=== PATIENT | female | born 1960 | race Caucasian/White ===

== ENCOUNTER → 2019-07-08 09:46 | Outpatient (CLI) | payer OTHER, SELFPAY ==
--- NOTE | ~2019-07-08 | MMUS_ITS ---
EXAMINATION: MM diagnostic sarah LT w bryan, US breast LT limited HISTORY: Six-month follow-up for probably benign left breast masses TECHNIQUE: Craniocaudal, mediolateral, and mediolateral oblique 3-D tomosynthesis images of the left breast were performed and synthetic 2-D images were generated. CAD analysis was submitted and interpr eted. High resolution limited left breast ultrasound was performed. COMPARISON: 11/11/2018, 06/20/2017, 04/07/2016 BREAST PARENCHYMAL COMPOSITION: The breasts are heterogeneously dense, which may obscure small masses . FINDINGS: MAMMOGRAPHIC FINDINGS: There is subtle architectural distortion and fine pleomorphic calcification in the posterior third of the upper outer breast at the 2:00 location 9 cm from the nipple. There is also an irregular, obscur ed, high density mass in the posterior third of inner breast at the 9:00 location 6.5 cm from the nip ple. ULTRASOUND: There is a 5 mm x 4 mm oval, parallel, hypoechoic mass with indistinct margins at the 9:00 location 4 cm from the nipple which demonstrates posterior acoustic shadowing but no definite internal vascular ity. There is a 6 mm x 5 mm oval, not parallel, hypoechoic mass with indistinct margins at the 2:00 l ocation 6 cm from the nipple with posterior acoustic shadowing but no definite internal vascularity. IMPRESSION: 1. Suspicious left breast masses. 2. Ultrasound-guided biopsy is recommended. Given the recent diagnosis of Paget's disease of the nipp le, MRI could be considered prior to biopsy to evaluate for additional occult masses. BI-RADS category 4, suspicious findings. Reviewed, dictated and finalized at location A. IMPRESSION: 1. Suspicious left breast masses. 2. Ultrasound-guided biopsy is recommended. Given the recent diagnosis of Paget 's disease of the nipple, MRI could be considered prior to biopsy to evaluate f or additional occult masses. BI-RADS category 4, suspicious findings.
== END ==
PROVIDERS: PCP Family Medicine; Visit Provider Family Medicine
DX: C50.012 Malignant neoplasm of nipple and areola, left female breast (principal); R92.8 Other abnormal and inconclusive findings on diagnostic imaging of breast
CPT/HCPCS: 76642; 77061; 77065; G0279

== ENCOUNTER 2019-07-18 09:28 | Outpatient (CLI) | payer OTHER, SELFPAY ==
--- NOTE | ~2019-07-18 | MR_ITS ---
EXAMINATION: MR breast BI wo/w con INDICATION: Paget's disease of the left nipple with suspicious left breast masses seen on diagnostic mammogram and ultrasound. TECHNIQUE: Axial VIBRANT pre and dynamic post contrast, Sagittal VIBRANT post contrast, Axial T2 STIR ASSET COMPARISON: 07/08/2019, 11/11/2018, 06/10/2017 CONTRAST: Multihance, 17 cc BREAST COMPOSITION: Heterogeneous fibroglandular tissue FINDINGS: RIGHT BREAST: There is mild background parenchymal enhancement. No abnormal enhancement is present af ter contrast administration. No pathologically enlarged axillary or internal mammary lymph nodes are identified. LEFT BREAST: There is mild background parenchymal enhancement. There is a 13 mm x 9 mm x 7 mm oval m ass with irregular margins, homogeneous internal enhancement with rapid enhancement in the initial ph ase and washout in the delayed phase at the 11:00 location in the middle third of the upper inner blue ast 5.5 cm from the nipple. A 13 mm x 10 mm mass with similar MR characteristics is seen in the anter ior/middle third of the breast at the 11:00 location 3.8 cm from the nipple. A 9 mm x 7 mm mass with similar sonographic features is present in the middle third of the breast at the 1:00 location 4 cm f rom the nipple. A 12 mm x 10 mm mass with similar MR features is present in the middle third of the b reast at the 10:00 location 5.5 cm from the nipple. An 11 mm x 9 mm mass with similar MR characterist ics is present in the posterior third of the slightly outer and central breast at the 2:00 location 8 cm from the nipple. There is nonmass enhancement in the anterior and middle third of the central, sl ightly upper breast. No pathologically enlarged axillary or internal mammary lymph nodes are identifi ed. IMPRESSION: 1: At least five suspicious left breast masses consistent with multicentric left breast cancer. Rece nt ultrasound demonstrated masses at 2:00, 6 cm from the nipple and 9:00, 4 cm from the nipple. Ultra sound-guided biopsy of these masses is recommended. 2. Nonmass enhancement of the left breast suspicious for ductal carcinoma in situ. BI-RADS category 5, highly suggestive of malignancy. Reviewed, dictated and finalized at location A. IMPRESSION: 1: At least five suspicious left breast masses consistent with multicentric le ft breast cancer. Recent ultrasound demonstrated masses at 2:00, 6 cm from the nipple and 9:00, 4 cm from the nipple. Ultrasound-guided biopsy of these masses is recommended. 2. Nonmass enhancement of the left breast suspicious for ductal carcinoma in si tu. BI-RADS category 5, highly suggestive of malignancy.
[2019-07-18 10:22] LABS: Estimated Glomerular Filt Rate > 60
== END 2019-07-18 09:29 | disposition home or self-care (01) ==
PROVIDERS: PCP Family Medicine; Visit Provider Surgery
DX: C44.99 Other specified malignant neoplasm of skin, unspecified (principal); R92.8 Other abnormal and inconclusive findings on diagnostic imaging of breast
CPT/HCPCS: 36415; 77049; A9577; C8908

== ENCOUNTER 2019-10-08 10:03 | Outpatient (CLI) | payer OTHER, SELFPAY ==
--- NOTE | ~2019-10-08 | DEXA_ITS ---
Bone Density Report Name: Charley Alvarez Age: 59 Sex: Female Ethnicity: White Date of : 1960 Indication: postmenopausal; prior fracture; cancer; Referring Provider: Gianfranco Yadav Study: Bone densitometry was performed. Exam Date: October 08, 2019 Accession number: [id number] Bone Density: Region BMD T-score Z-score Classification AP Spine (L1-L4) 0.838 -1.9 -0.6 Osteopenia Femoral Neck (Left) 0.693 -1.4 -0.2 Osteopenia Total Hip (Left) 0.842 -0.8 0.0 Normal Total Hip Bilateral Avg 0.808 -1.1 -0.3 Osteopenia Femoral Neck (Right) 0.621 -2.1 -0.9 Osteopenia Total Hip (Right) 0.772 -1.4 -0.6 Osteopenia World Health Organization criteria for BMD impression classify patients as: Normal (T-score at or above -1.0), Osteopenia (T-score between -1.0 and -2.5), or Osteoporosis (T-score at or below -2.5). 10-year Fracture Risk(1): Major Osteoporotic Fracture 15% Hip Fracture 2.0% Reported Risk Factors: [place] (), Neck BMD=0.621, BMI=30.5, previous fracture (1) FRAX(R) Version 3.08. Fracture probability calculated for an untreated patient. Fracture probability may be lower if the patient has received treatment. Clinical Information Provided by Patient: Has had a low trauma fracture Has the following medical conditions: Cancer Patient maximum height was 66 Menopause Age: 51 Drinks caffeinated beverages Onset of menses at age 13 Number of children 2 Impression: The patient has low bone mass, based on the Right Femoral Neck T-score. The patient has an estimated ten-year risk of hip fracture of 2% and an estimated ten-year risk of major fracture of 15%, based on the WHO FRAX algorithm. The patient has risk factors, including: previous fracture. Discussion: BONE DENSITY IS LOW AT ONE OR MORE SKELETAL SITES. This patient's lowest T-score is low at one or more skeletal sites. It meets the World Health Organization's (WHO) criteria for ?low bone mass? (T-score between -1.0 and -2.5). The patient's 10-year risk of fracture as calculated by FRAX is less than the threshold where pharmacological therapy is recommended by the National Osteoporosis Foundation (NOF). However, all treatment decisions require clinical judgment and consideration of individual patient factors, including patient preferences, comorbidities, previous drug use, risk factors not captured in the FRAX model (e.g., frailty, falls, vitamin D deficiency, increased bone turnover, interval significant decline in bone density) and possible under or overestimation of fracture risk by FRAX. The patient should follow a healthful lifestyle (good nutrition with adequate calcium and vitamin D, and appropriate weight-bearing exercise). Follow-Up: Consider repeating this study in 2 to 3 years to reassess this patient's status, or sooner if there is some new
== END 2019-10-08 10:04 | disposition home or self-care (01) ==
PROVIDERS: PCP Family Medicine; Visit Provider Internal Medicine Medical Oncology
DX: C50.112 Malignant neoplasm of central portion of left female breast (principal); M85.88 Other specified disorders of bone density and structure, other site; M85.852 Other specified disorders of bone density and structure, left thigh; M85.851 Other specified disorders of bone density and structure, right thigh
CPT/HCPCS: 77080

== ENCOUNTER 2021-11-15 15:42 | Outpatient (CLI) | payer OTHER, SELFPAY ==
--- NOTE | ~2021-11-15 | DEXA_ITS ---
Bone Density Report Name: ASHKAN NICHOLS Age: 61 Sex: Female Ethnicity: White Date of : 1960 Indication: postmenopausal; screening for osteoporosis; cancer; Referring Provider: YOSELYN, FERNANDA Garces Study: Bone densitometry was performed. Exam Date: November 15, 2021 Accession number: [id number] Bone Density: Region BMD T-score Z-score Classification AP Spine(L1-L4) 0.844 -1.8 -0.4 Osteopenia Femoral Neck (Left) 0.695 -1.4 -0.1 Osteopenia Total Hip (Left) 0.876 -0.5 0.4 Normal Femoral Neck (Right) 0.647 -1.8 -0.5 Osteopenia Total Hip (Right) 0.809 -1.1 -0.1 Osteopenia Total Hip Mean 0.842 -0.8 0.2 Normal World Health Organization criteria for BMD impression classify patients as: Normal (T-score at or above -1.0), Osteopenia (T-score between -1.0 and -2.5), or Osteoporosis (T-score at or below -2.5). 10-year Fracture Risk(1): Major Osteoporotic Fracture 8.7% Hip Fracture 0.9% Reported Risk Factors: [place] (), Neck BMD=0.647, BMI=30.0 (1) FRAX(R) Version 3.08. Fracture probability calculated for an untreated patient. Fracture probability may be lower if the patient has received treatment. Clinical Information Provided by Patient: Has used the following medications: Vitamin D Has the following medical conditions: Cancer Patient maximum height was 66 Menopause Age: 51 Drinks caffeinated beverages Onset of menses at age 13 Number of children 2 Impression: The patient has low bone mass, based on the Total Spine T-score. The patient has an estimated ten-year risk of hip fracture of 0.9% and an estimated ten-year risk of major fracture of 8.7%, based on the WHO FRAX algorithm. Discussion: BONE DENSITY IS LOW AT ONE OR MORE SKELETAL SITES. This patient's lowest T-score is low at one or more skeletal sites. It meets the World Health Organization's (WHO) criteria for ?low bone mass? (T-score between -1.0 and -2.5). The patient's 10-year risk of fracture as calculated by FRAX is less than the threshold where pharmacological therapy is recommended by the National Osteoporosis Foundation (NOF). However, all treatment decisions require clinical judgment and consideration of individual patient factors, including patient preferences, comorbidities, previous drug use, risk factors not captured in the FRAX model (e.g., frailty, falls, vitamin D deficiency, increased bone turnover, interval significant decline in bone density) and possible under or overestimation of fracture risk by FRAX. The patient should follow a healthful lifestyle (good nutrition with adequate calcium and vitamin D, and appropriate weight-bearing exercise). Follow-Up: Consider repeating this study in 2 to 3 years to reassess this patient's status, or sooner if there is some new clinical indication. Reporte
== END 2021-11-15 15:43 | disposition home or self-care (01) ==
PROVIDERS: PCP Family Medicine; Visit Provider Internal Medicine Medical Oncology
DX: Z13.820 Encounter for screening for osteoporosis (principal); Z79.811 Long term (current) use of aromatase inhibitors; C18.1 Malignant neoplasm of appendix; M85.88 Other specified disorders of bone density and structure, other site; M85.852 Other specified disorders of bone density and structure, left thigh; M85.851 Other specified disorders of bone density and structure, right thigh
CPT/HCPCS: 77080

== ENCOUNTER → 2021-11-28 13:52 | Outpatient (CLI) | payer OTHER, SELFPAY ==
--- NOTE | ~2021-11-28 | XR_ITS ---
EXAM: XR knee RT 2V DATE: 11/28/2021 14:06 HISTORY: Right knee pain, unspecified chronicity . COMPARISON: 02/06/2018. FINDINGS: Normal mineralization. No fracture or dislocation. No lytic or blastic lesion. Moderate me dial joint space narrowing. Loss of valgus alignment. Tricompartmental osteophytosis, moderate in the medial and patellofemoral compartments. No erosion or periosteal change. Varicose veins. Small volum e knee joint fluid. 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 Reviewed, dictated and finalized at location K.
== END ==
PROVIDERS: PCP Family Medicine; Visit Provider Internal Medicine Medical Oncology
DX: M17.11 Unilateral primary osteoarthritis, right knee (principal)
CPT/HCPCS: 73560

== ENCOUNTER 2023-11-04 07:05 | Emergency (ER) | payer OTHER, SELFPAY ==
[2023-11-04] VITALS (12 sets, daily range): BP systolic 125–176; BP diastolic 72–89; PULSE 83–95; RESP 10–20; TEMP 37.4–38.3; O2SAT 97–100
--- NOTE | ~2023-11-04 | XR_ITS ---
XR chest 1V portable DATE: 11/04/2023 07:43 INDICATION: Sudden onset of shortness of breath overnight. Back pain. TECHNIQUE: Portable upright AP chest on 11/04/2023 at 0737 hours COMPARISON: 01/13/2010 2 view chest FINDINGS: Heart size is within normal range. There is mild aortic tortuosity. No hilar or mediastinal enlargement. No pulmonary infiltrate or consolidation, pleural effusion or pulmonary vascular congestion or pneumo thorax. Osteopenia. IMPRESSION: No active cardiopulmonary disease Reviewed, dictated and finalized at location J.
--- NOTE | ~2023-11-04 | CT_ITS ---
EXAMINATION: CTA chest PE protocol DATE: 11/04/2023 08:54 INDICATION: Shortness of breath, fever, chills. Positive strep infection. Elevated d-dimer. TECHNIQUE: Computed tomography angiography (CTA) of the chest was performed with 100 mL Omnipaque-350 intravenous contrast timed to evaluate the pulmonary arteries. Coronal maximum intensity projection 3D-reconstructions were created by the technologist. Automated exposure control and iterative reconst ruction technique were employed. Exam dose: 576.09 mGy-cm total exam DLP. COMPARISON: 11/04/2023 portable AP chest FINDINGS: There is no evidence of pulmonary embolism. No thoracic aortic aneurysm or dissection. Normal heart size. No hilar or mediastinal mass lesion or lymphadenopathy. Small sliding hiatal hernia. The lungs are clear of infiltrate or consolidation or mass density. Normal morphology of the adrenal glands. Included upper abdominal structures are unremarkable. Bilateral breast implants, apparently associated with mastectomy and breast reconstruction on the lef t. Diffuse idiopathic skeletal hyperostosis of the thoracic spine. There is mild anterior wedging and prominent superior Schmorl's node at T11, which appears chronic. No suspicious osteolytic or osteoblastic lesions are noted. IMPRESSION: No evidence of pulmonary embolism Reviewed, dictated and finalized at Location A. Reviewed, dictated and finalized at location J.
--- NOTE | 2023-11-04 07:31 | ECG_ITS ---
Test Date: 2023-11-04 07:36:28 Measurements Intervals [place] Rate: 86 P: 19 WV: 164 QRS: 3 QRSD: 78 T: 29 QT: 331 QTc: 397 Interpretive Statements SINUS RHYTHM BASELINE ARTIFACT- I, II, III, AVR, AVL, AVF, V3 NORMAL ECG No previous ECG available for comparison Electronically Signed On 11-04-2023 08:02:49 CDT by Gigi Hastings D.O.
--- NOTE | 2023-11-04 07:35 | ED.GENADULT ---
HPI - General Adult General Chief complaint: Shortness of Breath/Dyspnea Stated complaint: sob Time Seen by Provider: 11/04/23 07:12 History of Present Illness HPI narrative: 63-year-old female presents to the emergency department for evaluation for increased shortness breath body aches and fatigue. Patient states he felt fine yesterday and then started having symptoms last night. Patient states she did not feel she could lay flat due to her shortness of breath. Patient has also complaining of some chest pain. Related Data Home Medications Medication Instructions Recorded Confirmed glucosam 750 mg-chondroi 100 1 tablet PO 12/31/20 02/26/23 mg-hyalur 1.65 mg-CF borate 108 mg tablet ([employer]) pyridoxine (vitamin B6) 100 mg 300 mg PO DAILY 12/31/20 02/26/23 tablet anastrozole 1 mg tablet 1 mg PO 07/31/22 02/26/23 Allergies Allergy/AdvReac Type Severity Reaction Status Date / Time Sulfa (Sulfonamide Allergy Unknown Skin Verified 10/05/23 14:30 Antibiotics) Reaction tree and shrub pollen Allergy Unknown Verified 10/05/23 14:30 Review of Systems Review of Systems: All systems reviewed & are unremarkable except as noted in HPI and below PMFSH Past Medical History Medical History Colon polyp Depression Essential (primary) hypertension High cholesterol History of chicken pox History of mumps Invasive ductal carcinoma of left breast Obesity (BMI 30.0-34.9) Surgical History Surgical History Breast nodule one nodule cut out then one aspirated 35 years ago H/O dilation and curettage 1992 History of breast biopsy 06/19/2019 History of 1994 History of endometrial ablation Varicose vein of leg removed Family History Family History Mother Depression Hypertension Family history of elevated blood lipids Family history of cardiovascular disease Acute myocardial infarction Family history of atrial fibrillation Cervical cancer, Onset Age: 28 Ovarian cancer Mitral valve prolapse Arthritis Father , 2011 Hypertension Family history of elevated blood lipids Family history of cardiovascular disease Malignant neoplasm of prostate, Onset Age: 60 Sibling Depression Hypertension Arthritis Sibling Multiple sclerosis Hypertension Social History Social History Smoking status: Never smoker Alcohol intake: current Substance use: never Lack of Transportation: No Lack of Food: Never True Current Housing: I Have Housing Concerned About Future Housing: No Difficulty Paying Gas/Electric Bills: No Difficulty Paying for Meds: No Currently Unemployed: No Education: Master's Degree or Higher Living arrangements: with family Occupation/Education: retired Gender identity (if verbalized by the patient): Female Exam Narrative: APPEARANCE: Ill-appearing HEAD: normocephalic, atraumatic. EYES: PERRLA/EOMI, conjunctivae clear. NOSE: Normal no drainage EARS:TMS clear with good light reflex. THROAT: Pharynx clear, no exudate. NECK: Supple. No adenopathy, no masses. RESPIRATORY: Airway patent, respirations nonlabored. Clear to auscultation bilaterally, no rales, rhonchi, wheezing. CARDIOVASCULAR: Regular rate and rhythm without murmurs rubs or gallops. ABDOMINAL: Soft, nontender, nondistended, normal bowel sounds MUSCULOSKELETAL: Moves all extremities. Strength/ROM intact, No edema, No calf tenderness. NEURO: Alert. Cranial nerves II through XII intact. Grossly intact SKIN: Warm, dry. Normal Color Course Course Emergency Course: Patient felt improved with treatment was comfortable with plan for discharge home. All questions concerns were addressed. Vital Signs Vital signs: Vital Signs [place]
[2023-11-04 07:48] LABS: Basophils Percent Auto 0.3 % (0.2-1.2); Eosinophils Percent Auto 0.4 % (0-4.4); Hematocrit 39.2 % (37.0-47.0); Immature Granulocyte Absolute 0.04 K/mm3 (0.00-0.031); Immature Granulocyte Percent A 0.4 % (0-0.5); Lymphocytes Absolute Auto 0.67 K/mm3 (0.9-3.2); Lymphocytes Percent Auto 6.4 % (18.3-44.2); Mean Corpuscular HGB Conc 33.2 g/dl (32-36); Mean Corpuscular Hemoglobin 31.6 pg (26-34); Mean Corpuscular Volume 95.4 fl (80-100); Mean Platelet Volume 9.4 fl (7.4-10.4); Monocytes Absolute Auto 0.7 K/mm3 (0.1-0.6); Monocytes Percent Auto 6.5 % (2.6-8.5); Neutrophils Absolute Auto 9.1 K/mm3 (1.3-6.7); Platelet Count Result 202 k/mm3 (150-375); Red Blood Count 4.11 M/mm3 (4.2-5.4); Red Cell Distribution Width 13.4 % (11.5-14.5); White Blood Count 10.5 K/mm3 (4.5-10.0)
[2023-11-04] MEDS: KETOROLAC 15 MG/ML VIAL (*BKC) IV PUSH (07:55)
[2023-11-04 07:58] LABS: Alanine Aminotransferase 25 U/L (6-35); Alkaline Phosphatase 129 U/L (38-126); Anion Gap 12 mmol/L (4-12); Aspartate Amino Transferase 27 U/L (14-36); Bilirubin,Total 1.5 mg/dL (0.2-1.3); Blood Urea Nitrogen 14 mg/dL (7-17); Calcium 9.8 mg/dL (8.4-10.2); Carbon Dioxide 25 mmol/L (22-30); Chloride 98 mmol/L (98-107); Estimated CRCL calculation 91 ml/min; Estimated Glomerular Filt Rate > 60; Glucose 116 mg/dL (65-110); Potassium 3.9 mmol/L (3.4-5.0); Sodium 135 mmol/L (137-145)
[2023-11-04] MEDS: ALBUTEROL SULFATE NEB 2.5 MG/3 ML INH INHALATION (08:05)
[2023-11-04 08:07] LABS: NT Pro B Type Natriuretic Pept 324 pg/mL (19.9-100); Strep Group A RT-PCR DETECTED (Negative)
[2023-11-04 08:11] LABS: Partial Thromboplastin Time 28.3 Seconds (22.3-36.8); Prothrombin Time 13.3 Seconds (11.1-14.7)
[2023-11-04 08:20] LABS: Troponin I < 0.012 ng/mL (0.000-0.034)
[2023-11-04 08:25] LABS: Influenza A QL RT-PCR Negative (Negative); Influenza B QL RT-PCR Negative (Negative); RSV RNA, RT-PCR Negative (Negative); SARS-CoV-2 RNA PCR Negative (Negative)
[2023-11-04] MEDS: dexAMETHasone SOD PHOS INJ 10 MG/ML 1 ML VIAL IM (09:31)
[2023-11-04] MEDS: AZITHROMYCIN 250 MG TABLET 500 MG PO (09:31)
[2023-11-04] MEDS: AMOXICILLIN/CLAVULANATE K 875-125 MG TAB 1 TABLET PO (09:31)
== END 2023-11-04 09:41 | disposition home or self-care (01) ==
PROVIDERS: Emergency Provider Emergency Medicine; PCP Family Medicine
DX: J02.9 Acute pharyngitis, unspecified (principal); Z20.822 Contact with and (suspected) exposure to COVID-19; I10 Essential (primary) hypertension; E78.00 Pure hypercholesterolemia, unspecified; E66.9 Obesity, unspecified; Z68.30 Body mass index [BMI] 30.0-30.9, adult; Z86.010 Personal history of colon polyps; Z85.3 Personal history of malignant neoplasm of breast
CPT/HCPCS: 36415; 71045; 71275; 80053; 83880; 84484; 85025; 85380; 85610; 85730; 87637; 87651; 93005; 94640; 94664; 96372; 96374; 99284; A9270; J1100; J1885; Q9967

== ENCOUNTER 2024-03-26 07:17 | Outpatient (NON) | payer OTHER, SELFPAY | END 2024-03-26 07:18 | disposition home or self-care (01) | LOC: ANHLAB 03-27 07:19 | PROVIDERS: PCP Family Medicine; Visit Provider Internal Medicine Gastroenterology | DX: K63.5 Polyp of colon (principal) | CPT/HCPCS: 88305 ==

== ENCOUNTER 2024-03-26 07:31 | Day surgery (SDC) | payer OTHER, SELFPAY ==
[2024-02-04 09:25] VITALS: BMI 31.0
--- NOTE | 2024-03-26 06:50 | P.PNAN_ITS ---
Anes - Initial Pre Proc Eval Procedure: Operation Date: 03/26/24 09:30 Proposed Procedures p Diagnostic Colonoscopy - Misbah Montemayor MD Date/Time: 03/26/24 06:50 Surgeon: Misbah Montemayor MD Pre Op Diagnosis: History of Colon Polyps Patient Data Age: 63 Gender: F Height: 1.68 m Weight: 87.271 kg Allergies Allergy/AdvReac Type Severity Reaction Status Date / Time Sulfa (Sulfonamide Allergy Unknown Skin Verified 03/26/24 08:14 Antibiotics) Reaction tree and shrub pollen Allergy Unknown Verified 03/26/24 08:14 Home Medications ?Medication ?Instructions ?Recorded ?Confirmed ?Type glucosam 750 mg-chondroi 100 1 tablet PO DAILY 12/31/20 03/26/24 History mg-hyalur 1.65 mg-CF borate 108 mg tablet ([facility]) meloxicam 15 mg tablet 15 mg PO DAILY #90 tabs 10/29/23 03/26/24 Rx propranolol 20 mg tablet See Rx Instructions .Route 11/20/23 03/26/24 Rx .COMPLEX #180 tabs clonazepam 0.5 mg tablet 0.5 mg PO BID #180 tabs 11/28/23 03/26/24 Rx simvastatin 10 mg tablet See Rx Instructions .Route 12/27/23 03/26/24 Rx .COMPLEX #90 tabs fluoxetine 10 mg capsule 10 mg PO DAILY #90 caps 01/29/24 03/26/24 Rx fluoxetine 20 mg capsule (Prozac) 20 mg PO DAILY #90 caps 01/29/24 03/26/24 Rx lisinopril 10 mg tablet See Rx Instructions .Route 01/29/24 03/26/24 Rx .COMPLEX #90 tabs Patient hx anesthesia problems: none Family hx anesthesia problems: none Results Review: All pre-operative results and documents have been reviewed as part of the pre- operative evaluation. [facility] Past Medical History Medical History (Updated 03/26/24 @ 06:51 by Josemanuel Marcial DO) Paget disease Colon polyp History of mumps History of chicken pox Obesity (BMI 30.0-34.9) Invasive ductal carcinoma of left breast High cholesterol Depression Essential (primary) hypertension Surgical History Surgical History History of endometrial ablation Varicose vein of leg removed H/O dilation and curettage 1992 History of 1994 Breast nodule one nodule cut out then one aspirated 35 years ago History of breast biopsy 06/19/2019 Family History Family History Mother Depression Hypertension Family history of elevated blood lipids Family history of cardiovascular disease Acute myocardial infarction Family history of atrial fibrillation Cervical cancer, Onset Age: 28 Ovarian cancer Mitral valve prolapse Arthritis Father , 2011 Hypertension Family history of elevated blood lipids Family history of cardiovascular disease Malignant neoplasm of prostate, Onset Age: 60 Sibling Depression Hypertension Arthritis Sibling Multiple sclerosis Hypertension Social History Social History Smoking status: Never smoker Alcohol intake: current Substance use: never Substance use type: does not use Lack of Transportation: No Lack of Food: Never True Current Housing: I Have Housing Concerned About Future Housing: No Difficulty Paying Gas/Electric Bills: No Difficulty Paying for Meds: No Currently Unemployed: No Education: Master's Degree or Higher Living arrangements: with family Occupation/Education: retired Gender identity (if verbalized by the patient): Female Spiritual care concerns: No Anes - Eval Final PreProcedure Day of Procedure 03/26/24 06:50 Patient weight: obese Heart: regular rate and rhythm Lungs: clear to auscultation Airway: Mallampati scale class II Neurological: alert and oriented Last oral intake: >/= 8 hours ASA classification: III Emergent: no Anesthetic plan: proceed Anesthesia type and monitoring: general GIVS and standard monitoring Results Review: All pre-operative results and documents have been reviewed as part of the pre- operative evaluation. Informed Consent: The patient's anesthetic plan and its attendant risks and benefits were discussed with the patient/family/POA. Questions were solicited and answers provided to the satisfaction of the patient/family/POA.
[2024-03-26 08:16] VITALS: BP 152/83; PULSE 66; RESP 16; TEMP 36.3; O2SAT 100
[2024-03-26] MEDS: LACTATED RINGERS 1,000 ML 150 ML IV CONT (08:20)
--- NOTE | 2024-03-26 09:01 | PM.HPGS ---
History of Present Illness History of Present Illness Consent: Risks, benefits, and alternatives have been discussed and questions answered. Patient agrees to proceed with procedure. Chief complaint: History of Colon Polyps Narrative: Charley Alvarez is a 63 year old female presents for screening colonoscopy. Patient was found to have adenomatous colon polyps at time of last colonoscopy 2012. Family history is noncontributory. There is a cousin that may have had colon polyps. Patient reports that her own weight appetite and bowel movements are normal. Patient denies abdominal pain. Has had no bleeding. Review of Systems Review of Systems: All systems reviewed & are unremarkable except as noted in HPI and below PMFSH Past Medical History Medical History (Updated 03/26/24 @ 09:03 by Misbah Montemayor MD) Paget disease Colon polyp History of mumps History of chicken pox Obesity (BMI 30.0-34.9) Invasive ductal carcinoma of left breast High cholesterol Depression Essential (primary) hypertension Surgical History Surgical History History of endometrial ablation Varicose vein of leg removed H/O dilation and curettage 1992 History of 1994 Breast nodule one nodule cut out then one aspirated 35 years ago History of breast biopsy 06/19/2019 Family History Family History Mother Depression Hypertension Family history of elevated blood lipids Family history of cardiovascular disease Acute myocardial infarction Family history of atrial fibrillation Cervical cancer, Onset Age: 28 Ovarian cancer Mitral valve prolapse Arthritis Father , 2011 Hypertension Family history of elevated blood lipids Family history of cardiovascular disease Malignant neoplasm of prostate, Onset Age: 60 Sibling Depression Hypertension Arthritis Sibling Multiple sclerosis Hypertension Social History Social History Smoking status: Never smoker Alcohol intake: current Substance use: never Substance use type: does not use Lack of Transportation: No Lack of Food: Never True Current Housing: I Have Housing Concerned About Future Housing: No Difficulty Paying Gas/Electric Bills: No Difficulty Paying for Meds: No Currently Unemployed: No Education: Master's Degree or Higher Living arrangements: with family Occupation/Education: retired Gender identity (if verbalized by the patient): Female Spiritual care concerns: No Meds Home Medications and Allergies Home Medications ?Medication ?Instructions ?Recorded ?Confirmed ?Type glucosam 750 mg-chondroi 100 1 tablet PO DAILY 12/31/20 03/26/24 History mg-hyalur 1.65 mg-CF borate 108 mg tablet ([facility] [employer]) meloxicam 15 mg tablet 15 mg PO DAILY #90 tabs 10/29/23 03/26/24 Rx propranolol 20 mg tablet See Rx Instructions .Route 11/20/23 03/26/24 Rx .COMPLEX #180 tabs clonazepam 0.5 mg tablet 0.5 mg PO BID #180 tabs 11/28/23 03/26/24 Rx simvastatin 10 mg tablet See Rx Instructions .Route 12/27/23 03/26/24 Rx .COMPLEX #90 tabs fluoxetine 10 mg capsule 10 mg PO DAILY #90 caps 01/29/24 03/26/24 Rx fluoxetine 20 mg capsule (Prozac) 20 mg PO DAILY #90 caps 01/29/24 03/26/24 Rx lisinopril 10 mg tablet See Rx Instructions .Route 01/29/24 03/26/24 Rx .COMPLEX #90 tabs Allergies Allergy/AdvReac Type Severity Reaction Status Date / Time Sulfa (Sulfonamide Allergy Unknown Skin Verified 03/26/24 08:14 Antibiotics) Reaction tree and shrub pollen Allergy Unknown Verified 03/26/24 08:14 Vital Signs Vital Signs - 24 hr 03/26/24 08:16 Temperature 97.3 F L Pulse Rate 66 Respiratory Rate 16 Blood Pressure 152/83 H Pulse Oximetry 100 Oxygen Delivery Room Air Exam Narrative: Physical exam reveals patient to be alert signs stable. HEENT exam is unremarkable. Patient is anicteric. Lungs are clear to auscultation and percussion. Heart is without murmur or extra sounds. Abdomen bowel sounds are present soft nontender with no organomegaly. Digital and external rectal exam normal. Assessment and Plan Assessment and plan (1) History of colon polyps: Code(s): Z86.0100 - Personal history of colon polyps, unspecified Status: Acute Assessment and Plan: The patient has a history of adenomatous colon polyp removed from the colon 10 years ago. Plan for surveillance colonoscopy at this time. Further recommendations may be given after endoscopy.
[2024-03-26 10:15] VITALS: BP 114/59; PULSE 69; RESP 16; O2SAT 100
[2024-03-26 10:25] VITALS: BP 153/78; PULSE 61; RESP 16; O2SAT 100
[2024-03-26 10:35] VITALS: BP 133/77; PULSE 64; RESP 16; O2SAT 100
--- NOTE | 2024-03-26 11:28 | WPDANESPN ---
Anes - Prog Note Post-Op Date/Time: 03/26/24 11:28 Cardiovascular status: normal Respiratory status: normal Airway patency: baseline Mental status: baseline Post-Op hydration status: normal Vital Signs: Last Vital Signs Temp 36.3 C L 03/26/24 08:16 Pulse 64 03/26/24 10:35 Resp 16 03/26/24 10:35 BP 133/77 03/26/24 10:35 Pulse Ox 100 03/26/24 10:35 O2 Del Method Room Air 03/26/24 10:35 Pain Score (VAS): 0 I/O: Intake & Output 03/25/24 03/26/24 03/26/24 23:59 07:59 15:59 Intake Total 350 Balance 350 Post-procedural complaints: none Patient Feedback: Patient satisfied with anesthetic care. Other Findings: Patient vital signs back to baseline. Patient denies nausea and vomiting. Patient's pain under control. Patient OK for discharge.
== END 2024-03-26 10:50 | disposition home or self-care (01) ==
PROVIDERS: PCP Family Medicine; Visit Provider Internal Medicine Gastroenterology
PROC: 0DJD8ZZ Inspection of Lower Intestinal Tract, Via Natural or Artificial Opening Endoscopic (ICD-10-PCS; CPT 45378; principal; 2024-03-26 09:30)
DX: Z86.0100 Personal history of colon polyps, unspecified (principal); D12.2 Benign neoplasm of ascending colon
CPT/HCPCS: 45385

== ENCOUNTER 2024-04-04 12:42 | Outpatient (CLI) | payer OTHER, SELFPAY ==
--- NOTE | ~2024-04-04 | DEXA_ITS ---
Bone Density Report Name: ASHKAN NICHOLS Age: 63 Sex: Female Ethnicity: White Date of : 1960 Indication: osteopenia; cancer; Referring Provider: YOSELYN, FERNANDA Garces Study: Bone densitometry was performed. Exam Date: April 04, 2024 Accession number: [id number] Bone Density: Region BMD T-score Z-score Classification AP Spine(L1-L4) 0.759 -2.6 -1.0 Osteoporosis Femoral Neck (Left) 0.639 -1.9 -0.5 Osteopenia Total Hip (Left) 0.854 -0.7 0.4 Normal Femoral Neck (Right) 0.572 -2.5 -1.1 Osteoporosis Total Hip (Right) 0.740 -1.7 -0.6 Osteopenia Total Hip Mean 0.797 -1.2 -0.1 Osteopenia World Health Organization criteria for BMD impression classify patients as: Normal (T-score at or above -1.0), Osteopenia (T-score between -1.0 and -2.5), or Osteoporosis (T-score at or below -2.5). 10-year Fracture Risk: FRAX not reported because: Some T-score for Spine Total or Hip Total or Femoral Neck at or below -2.5 Previous Exams: Region Exam Age BMD T-score BMD Change BMD Change Date g/cm2 vs Baseline vs Previous AP Spine (L1-L4) 04/04/2024 63 0.759 -2.6 -0.079 (-9.4%) -0.085 (-10.0% 11/15/2021 61 0.844 -1.8 0.006 (0.7%) 0.006 (0.7%) 10/08/2019 59 0.838 -1.9 Total Hip(Left) 04/04/2024 63 0.854 -0.7 0.012 (1.4%)# -0.021 (-2.5%) 11/15/2021 61 0.876 -0.5 0.033 (3.9%)* 0.033 (3.9%)* 10/08/2019 59 0.842 -0.8 Total Hip(Right) 04/04/2024 63 0.740 -1.7 -0.032 (-4.1%) -0.069 (-8.6%) 11/15/2021 61 0.809 -1.1 0.037 (4.9%)* 0.037 (4.9%)* 10/08/2019 59 0.772 -1.4 *Denotes significance at 95% confidence level, LSC for AP Spine = 0.022 g/cm2, LSC for Total Hip = 0.027 g/cm2 # Denotes dissimilar scan types or analysis methods Clinical Information Provided by Patient: Has used the following medications: Fosamax (i.e. alendronate), Calcium Has the following medical conditions: Cancer Patient maximum height was 67 Menopause Age: 51 Drinks caffeinated beverages Onset of menses at age 13 Number of children 2 Impression: The patient has osteoporosis, based on the Total Spine T-score. No significant bone loss was observed. Discussion: INCREASED RISK OF FRACTURE. BONE DENSITY IS UNDESIRABLY LOW AT ONE OR MORE SKELETAL SITES, CONSISTENT WITH POSTMENOPAUSAL OSTEOPOROSIS. This patient's lowest T-score meets the World Health Organization's (WHO) criteria for osteoporosis at one or more sites (T-score -2.5 or below). In untreated patients, the risk of osteoporotic fracture increases approximately two-fold for each 1.0 SD decrease in T-score. Low bone density is not the only risk factor for fracture; also consider factors such as patient's age, frailty or poor health, risk of falling, risk of injury, previous osteoporotic fracture, family history of osteoporosis, cigarette smoking, low body weight, etc. Not everyone with low bone mineral density has osteoporosis; osteomalacia and other metabolic bone disorders should also be considered. Patients who have osteoporosis should be evaluated for specific diseases and conditions (secondary causes) that may cause or contribute to bone loss. The [place] [employer]ocr[employer] (AACE) and National Osteoporosis Foundation (NOF) recommend pharmacologic intervention for all postmenopausal women whose T-score is in this range. The patient should follow a healthful lifestyle (good nutrition with adequate calcium and vitamin D, and appropriate weight-bearing exercise). Follow-Up: Consider a repeat BMD and Vertebral Fracture Assessment (VFA) exam in 2 years or sooner if medically necessary, to reassess this patient's status. Reported by: PAULINA on 04/04/2024 1:20:00 PM. Reviewed, dictated and finalized at location [email or web address]
== END 2024-04-04 12:43 | disposition home or self-care (01) ==
PROVIDERS: PCP Family Medicine; Visit Provider Internal Medicine Medical Oncology
DX: Z13.820 Encounter for screening for osteoporosis (principal); Z79.811 Long term (current) use of aromatase inhibitors; M85.852 Other specified disorders of bone density and structure, left thigh; M85.851 Other specified disorders of bone density and structure, right thigh
CPT/HCPCS: 77080